=== PATIENT | female | born 1970 | race Caucasian/White ===

== ENCOUNTER 2020-04-08 13:30 | Emergency (ER) | payer OTHER, SELFPAY ==
[2020-04-08 13:31] VITALS: BP 138/115; PULSE 89; RESP 16; TEMP 36.9; BMI 23.6
--- NOTE | 2020-04-08 13:39 | ED.RN ---
Billy Parra declines need for post accident testing.
--- NOTE | 2020-04-08 15:24 | ED.VISSUMM ---
- ER Visit Summary Date of Service: 04/08/20 Chief Complaint: [Dog bite] History of Present Illness: The patient is a 49 F [presents to the emergency department complaint of a dog bite to the right thigh that occurred this afternoon. Patient states that she had delivered a package to home and then went across the street to deliver another baggage and when she came back towards her vehicle the person who had received the package open the door and a dog came running out and bit her on the right leg. Patient unsure of her last tetanus. She denies any other injuries.] Physical Examination: [HEENT-PERRLA, EOMI. Cranial nerves II through XII grossly intact. TMs clear. Mucous membranes moist. No adenopathy. Cardiovascular-regular rate and rhythm without murmur or ectopy Lungs-clear to auscultation, chest wall stable without crepitus or subcu emphysema Abdomen-normoactive bowel sounds, soft, nontender, no rebound or rigidity, no peritoneal signs. Extremities-intact ?4, normal range of motion, normal pulses right thigh-patient has 2 small puncture wounds to the anterior aspect of the distal right thigh measuring approximately a centimeter in length. No significant bleeding at this time. The wounds are not significantly gaping open.] Test Results: [None indicated] Emergency Department Course and Treatment: [Patient was given a tetanus booster. Patient was given Augmentin 875 p.o. Wounds were cleansed and irrigated with saline and clean dressings applied.] Treatment Plan: [Follow-up with primary care physician or corporate care within next 3 to 5 days for wound check. Patient will be started on Augmentin. She is advised to return if increasing pain, redness, swelling, or condition should worsen anyway.] Disposition: [Discharged home in stable condition] Impression: [Dog bite right anterior thigh] This note was generated with [employer] dictation software. It may contain incorrect words, spelling, and punctuation that were not noted in review of the chart prior to signing ED Disposition - Plan for ED Patient: Referrals: Care Physician,No Primary [Primary Care Provider] -
--- NOTE | 2020-04-08 15:26 | ED.DEP ---
ED Disposition - Plan for ED Patient: Instructions: ED Dog Bite Prescriptions: Amox/Clavulanate Tablet [Augmentin Tablet] 875 mg PO Q12H #14 tab Prescription Printed Referrals: Care Physician,No Primary [Primary Care Provider] - Corporate,Care [GROUP OF PHYSICIANS] - 3-5 Days
[2020-04-08] MEDS: Diphth,Pertuss(Acell),Tet Vac 0.5 ML Vial IM (15:46)
[2020-04-08 15:47] VITALS: BP 136/75; PULSE 62; RESP 15; O2SAT 98
[2020-04-08] MEDS: Amox/Clavulanate 875 MG Tablet PO (15:47)
== END 2020-04-08 15:58 | disposition home or self-care (01) ==
LOC: ED 15:54
PROVIDERS: Emergency Provider Emergency Medicine
DX: S71.151A Open bite, right thigh, initial encounter (principal); W54.0XXA Bitten by dog, initial encounter; Z23 Encounter for immunization
CPT/HCPCS: 90715; 99283

== ENCOUNTER → 2020-07-07 07:27 | Outpatient (CLI) | payer OTHER, SELFPAY ==
--- NOTE | 2020-07-07 07:37 | CT_ITS ---
STUDY: CT RIGHT FOOT REASON FOR EXAM: Female, 50 years old. FOOT PAIN/NONUNION THIRD METATARSAL PROXIMAL 3RD -- RIGHT FOOT RADIATION DOSAGE (If Supplied By Facility): CTDIvol = ( 15.35 ) mGy, DLP = ( 338.41 ) mGycm TECHNIQUE: Thin section transaxial imaging of the foot was obtained, with sagittal and coronal reconstructed images. Individualized dose optimization techniques were used for this CT. COMPARISON: MRI dated 07/07/2020. FINDINGS: Mild soft tissue swelling at the midfoot. Small volume tibiotalar joint effusion. Sinus Tarsi spacer. 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 No acute dislocation. No acute cortical destruction. No new fracture line. Postsurgical changes/tendinosis at the tibialis anterior tendon. Normal Achilles attachment site. Normal plantar attachment site. Normal plantar calcaneal tubercles. No focal muscle atrophy. 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
--- NOTE | 2020-07-07 07:50 | MRI_ITS ---
STUDY: MRI LEFT ANKLE WITHOUT CONTRAST REASON FOR EXAM: Female, 50 years old. LEFT ANKLE NONUNION 3RD MT,SUBLUXATION PERONEAL W/ TEAR, POST TIB -- TENDONITIS TECHNIQUE: Standardized fat and water weighted pulse sequences were obtained in all 3 orthogonal planes. COMPARISON: CT scan dated 07/07/2020 and MRI dated 06/30/2005. FINDINGS: Mild soft tissue swelling at the midfoot. Small volume tibiotalar joint effusion. Sinus Tarsi spacer. Advanced medial tarsometatarsal joint arthrosis. Subacute/chronic nonunited third metatarsal base fracture on sagittal image 17 series 7). No acute dislocation. No acute cortical destruction. Mild posterior tibialis and flexor tenosynovitis. Mild peroneus longus and brevis tenosynovitis with subluxation. Postsurgical changes/tendinosis at the tibialis anterior tendon. Remainder of the extensor tendons unremarkable. Normal Achilles tendon and teno-osseous insertion. Normal plantar fascia. Normal plantar calcaneal tubercles. Normal intrinsic muscles of the rearfoot. Intact distal tibiofibular syndesmotic ligamentous complex. Intact lateral ligamentous complex with chronic thickening. Intact deltoid ligamentous complexes. Intact plantar calcaneonavicular (spring) ligament. Chronic Lisfranc ligament sprain (long axis image 8 series 10) without tear. 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
== END ==
PROVIDERS: PCP Family Medicine; Referring Provider Podiatrist; Visit Provider Podiatrist
DX: S92.334K Nondisplaced fracture of third metatarsal bone, right foot, subsequent encounter for fracture with nonunion (principal); M79.671 Pain in right foot
CPT/HCPCS: 73700; 73721